=== PATIENT | male | born 1995 | race Two or more races ===

== ENCOUNTER 2021-05-31 01:49 | Emergency (ER) | payer SELFPAY ==
[~2021-05-31] VITALS: Ht 177.8 cm; Wt 2.6 kg
[2021-05-31 02:09] VITALS: BP 128/92
[2021-05-31 04:27] LABS: Basophils # (auto) 0.1 10 ^3/uL (0-0.2); Basophils % (auto) 0.5 % (0.0-2.0); Eosinophils # (auto) 0.2 10 ^3/uL (0-0.8); Eosinophils % (auto) 1.6 % (0.0-7.0); Hematocrit 40.2 % (41.0-53.0); Hemoglobin 13.4 g/dL (13.5-17.5); Lymphocytes # (auto) 2.8 10 ^3/uL (0.4-5.4); Lymphocytes % (auto) 23.9 % (10.0-50.0); Mean Corpuscular Hemoglobin 31.2 pg (28.0-32.0); Mean Corpuscular Hgb Conc. 33.3 g/dL (32.0-36.0); Mean Corpuscular Volume 93.6 fL (80.0-100.0); Monocytes # (auto) 1.2 10 ^3/uL (0-1.3); Monocytes % (auto) 10.3 % (0.0-12.0); Neutrophils # (auto) 7.6 10 ^3/uL (1.6-8.6); Neutrophils % (auto) 63.7 % (37.0-80.0); Red Blood Cells 4.29 10^6/uL (4.5-5.90); Red Cell Distribution Width 13.6 % (11.8-14.3); White Blood Cell 11.9 10^3/uL (4.4-10.8)
[2021-05-31 04:52] LABS: Calcium 8.3 mg/dL (8.5-10.1); Chloride 101 mmol/L (98-107); Potassium 3.9 mmol/L (3.5-5.1); Sodium 137 mmol/L (136-145)
[2021-05-31 04:54] LABS: Salicylate 1.8 mg/dL (2.8-20.0)
[2021-05-31 04:57] LABS: Alanine Aminotransferase 36 U/L (16-61); Albumin 3.9 g/dL (3.4-5.0); Alkaline Phosphatase 71 U/L (45-117); Anion Gap 4 (5-15); Aspartate Aminotransferase 19 U/L (15-37); BUN/Creatinine Ratio 28.7; Bilirubin, Total 0.5 mg/dL (0.2-1.0); Blood Alcohol < 3.0 mg/dL (0-5); Blood Urea Nitrogen 25 mg/dL (7-18); Carbon Dioxide 32 mmol/L (21-32); GFR African American 140 mL/min; GFR Non-African American 116 mL/min; Glucose 122 mg/dL (74-106); Magnesium 3.2 mg/dL (1.6-2.6); Total Protein 6.7 g/dL (6.4-8.2)
[2021-05-31 04:59] LABS: Acetaminophen < 2.0 ug/mL (10-30)
[2021-05-31 07:15] LABS: Alcohol, Urine < 3.0 mg/dL (0-10); Amphetamine Screen, Urine POSITIVE (NEGATIVE); Barbiturate Scree,Urine NEGATIVE (NEGATIVE); Benzodiazephine Screen, Urine NEGATIVE (NEGATIVE); Cannabinoid Screen, Urine POSITIVE (NEGATIVE); Cocaine Screen, Urine NEGATIVE (NEGATIVE); Opiate Scree,Urine NEGATIVE (NEGATIVE); Phencyclidine Screen, Urine NEGATIVE (NEGATIVE)
[2021-05-31] MEDS ORDERED: SODIUM CHLORIDE 0.9% 1,000 ML IVB ONE (08:30)
[2021-05-31 10:32] LABS: Urine Bacteria NONE SEEN /hpf (None Seen); Urine Blood Negative /uL (Negative); Urine Specific Gravity 1.024 (1.001-1.035); Urine WBC <1 /hpf (0 - 3)
[2021-05-31] MEDS ORDERED: MULTIPLE VITAMIN 10 ML, MAGNESIUM SULF SDV 50% 8 MEQ, THIAMINE INJ 100 MG in SODIUM CHL... IV SCH (12:00)
[2021-05-31] MEDS ORDERED: MULTIPLE VITAMIN 10 ML, THIAMINE INJ 100 MG in SODIUM CHLORIDE 0.9% 1,000 ML IV ONE (12:00)
[2021-06-01] MEDS ORDERED: MULTIPLE VITAMIN 10 ML, MAGNESIUM SULF SDV 50% 8 MEQ, THIAMINE INJ 100 MG in SODIUM CHL... IV SCH (12:00)
== END 2021-05-31 13:31 | disposition left against medical advice (07) ==
LOC: ER 01:49 → EDBD 01:49 → ER 13:31
DX: K29.70 Gastritis, unspecified, without bleeding (principal); F17.210 Nicotine dependence, cigarettes, uncomplicated; F15.10 Other stimulant abuse, uncomplicated; Z59.00 Homelessness unspecified; Z53.29 Procedure and treatment not carried out because of patient's decision for other reasons
CPT/HCPCS: 36415; 80053; 80307; 80320; 80329; 81001; 83735; 85025